=== PATIENT | female | born 1975 | race African-American/Black ===

== ENCOUNTER 2023-08-09 20:58 | Emergency (ER) | payer BC, MEDICAID, OTHER ==
[~2023-08-09] VITALS: Ht 165.1 cm; Wt 94.6 kg
[2023-08-09 21:26] VITALS: O2SAT 100
[2023-08-09 22:55] LABS: BASOPHILS % 0.2 % (0.0-2.0); EOSINOPHILS % 1.9 % (0.0-5.0); HEMATOCRIT. 40.6 % (36.0-48.0); HEMOGLOBIN. 13.3 g/dL (12.0-16.0); LYMPHOCYTES % 36.4 % (20.0-50.0); MEAN CORPUSCULAR HEMOGLOBIN 26.6 pg (28.0-32.0); MEAN CORPUSCULAR HGB CONC 32.8 g/dL (31.0-37.0); MEAN CORPUSCULAR VOLUME 80.9 fL (81.0-99.0); MEAN PLATELET VOLUME 7.9 fl (7.4-10.4); MONOCYTES % 11.7 % (2.0-8.0); NEUTROPHILS % 49.8 % (40.0-76.0); PLATELET 323 x1000/uL (130-400); RED BLOOD CELL COUNT 5.01 mill/uL (4.2-5.4); RED CELL DISTRIBUTION WIDTH 15.7 % (11.6-14.6); WHITE BLOOD COUNT 9.9 x1000/uL (4.5-11.0)
[2023-08-09 22:56] LABS: CLARITY URINE CLOUDY (CLEAR); COLOR URINE YELLOW (YELLOW); GLUCOSE URINE NEGATIVE (NEGATIVE); KETONES URINE NEGATIVE (NEGATIVE); LEUKOCYTE ESTERASE URINE NEGATIVE (NEGATIVE); NITRITE URINE NEGATIVE (NEGATIVE); OCCULT BLOOD URINE NEGATIVE (NEGATIVE); PH URINE 5.5 (4.5-8.0); PROTEIN URINE NEGATIVE (NEGATIVE); SPECIFIC GRAVITY URINE 1.008 (1.005-1.030)
[2023-08-09 22:57] LABS: SQUAMOUS EPITHELIAL CELL URINE 2+ /lpf (RARE/1+); YEAST URINE NONE SEEN
[2023-08-09 23:03] LABS: CHLORIDE 107 mEq/L (98-107); INDEX HEMOLYSI 1 (1-3); INDEX ICTERIC 1 (1-4); INDEX LIPEMIC 1 (1-3); POTASSIUM 3.8 mEq/L (3.5-5.1); SODIUM 137 mEq/L (136-145)
[2023-08-09 23:05] LABS: ALBUMIN 3.6 g/dL (3.4-5.0); CALCIUM 8.8 mg/dL (8.5-10.1); CARBON DIOXIDE 26 mEq/L (21-32); GLUCOSE 104 mg/dL (70-105)
[2023-08-09 23:08] LABS: ALANINE AMINOTRANSFERASE 24 IU/L (13-61); ETHANOL BLOOD < 10 mg/dL (<10); UREA NITROGEN BLOOD 10 mg/dL (7-21)
[2023-08-09 23:09] LABS: HCG SCREEN NEGATIVE
[2023-08-09 23:10] LABS: *BARBITURATES SCREEN URINE NEGATIVE (NEGATIVE); *BENZODIAZEPINES SCREEN URINE NEGATIVE (NEGATIVE); *COCAINE SCREEN URINE NEGATIVE (NEGATIVE); ACETAMINOPHEN <2 ug/mL ug/mL (10-30); ASPARTATE AMINOTRANSFERASE 16 IU/L (15-37); BILIRUBIN TOTAL 0.3 mg/dL (0.1-1.0); CREATININE 0.8 mg/dL (0.6-1.3); ECSTASY MDMA SCREEN URINE NEGATIVE (NEGATIVE); PROTEIN TOTAL 7.7 g/dL (6.0-8.3)
[2023-08-09 23:15] LABS: *AMPHETAMINES SCREEN URINE PRESUMTIVE POSITIVE (NEGATIVE); BACTERIA URINE 2+; CANNABINOID URINE SCREEN PRESUMTIVE POSITIVE (NEGATIVE); OPIATES URINE SCREEN PRESUMTIVE POSITIVE (NEGATIVE); PHENCYCLIDINE URINE SCREEN PRESUMTIVE POSITIVE (NEGATIVE); RBC URINE 0-2 /hpf (0-2); WBC URINE 0-2 /hpf (0-2)
[2023-08-09 23:18] LABS: THYROID STIMULATING HORMONE 0.54 uIU/mL (0.36-3.74)
[2023-08-10] MEDS ORDERED: ACETAMINOPHEN 325MG TABLET PO ONE (00:45)
[2023-08-10] MEDS: OLANZAPINE 5MG TABLET ODT PO SCH ×2 (10:00→10:48)
[2023-08-10] MEDS ORDERED: LORAZEPAM 2MG/ML CPJ IM STA (13:22)
[2023-08-10] MEDS ORDERED: OLANZAPINE 10 MG/VIAL IM ONE (13:30)
[2023-08-11] MEDS ORDERED: LORAZEPAM 2MG/ML CPJ IM STA (08:01)
[2023-08-11] MEDS ORDERED: OLANZAPINE 10 MG/VIAL IM ONE ×2 (08:15→18:00)
[2023-08-11] MEDS: OLANZAPINE 5MG TABLET ODT PO SCH ×2 (08:19→17:00)
[2023-08-12] MEDS: OLANZAPINE 5MG TABLET ODT PO SCH ×2 (09:00→17:00)
[2023-08-12] MEDS ORDERED: ACETAMINOPHEN 325MG TABLET PO ONE (22:15)
[2023-08-13] MEDS ORDERED: MAGNESIUM/ALUMINUM HYDROXIDE/SIMETHICONE 30ML UDC PO ONE (00:30)
[2023-08-13 08:00] VITALS: BP 133/81; PULSE 83; RESP 16; TEMP 98.2
== END 2023-08-13 08:55 | disposition home or self-care (01) ==
LOC: ER 20:58
DX: R45.851 Suicidal ideations (principal); J45.909 Unspecified asthma, uncomplicated; F32.A Depression, unspecified; Z20.822 Contact with and (suspected) exposure to COVID-19
CPT/HCPCS: 80053; 80305; 81003; 80307; 80329; 80320; 84703; 84443; 85025; 36415; 93970; 93005; 99285; 87426; 96372; C9803; J3490; J2060; G0480